=== PATIENT | female | born 1950 | race Asian ===

== ENCOUNTER 2019-09-08 08:48 | Outpatient (CLI) | payer MEDICARE ==
[~2019-09-08] VITALS: Ht 152.4 cm; Wt 43.4 kg
[2019-09-08] MEDS ORDERED: CHLORHEXIDINE 15 ML UDC MM STA (09:30)
[2019-09-08] MEDS ORDERED: LACTATED RINGERS 1,000 ML IV STA (09:30)
[2019-09-08] MEDS ORDERED: GABAPENTIN 300 MG CAPSULE PO STA (09:32)
[2019-09-08] MEDS ORDERED: ACETAMINOPHEN 500 MG TABLET PO STA (09:32)
[2019-09-08] MEDS ORDERED: amlodipine (09:35)
[2019-09-08] MEDS ORDERED: atorvastatin (09:35)
[2019-09-08] MEDS ORDERED: ENALAPRIL MALEATE (09:35)
[2019-09-08] MEDS ORDERED: HYDR25TA6 PO ×2 (09:35→09:50)
[2019-09-08 09:50] VITALS: BP 137/84
[2019-09-08] MEDS ORDERED: ATOR40TA PO (09:50)
[2019-09-08] MEDS ORDERED: ENAL10TA PO (09:50)
[2019-09-08] MEDS ORDERED: ACETAMINOPHEN 500 MG TABLET ONE (09:56)
[2019-09-08] MEDS ORDERED: GABAPENTIN 300 MG CAPSULE ONE (09:56)
[2019-09-08] MEDS ORDERED: CHLORHEXIDINE 15 ML UDC ONE (09:56)
[2019-09-08] MEDS ORDERED: PLEASE ENTER ALLERGIES MC SCH (10:00)
[2019-09-08 10:21] LABS: ALANINE AMINOTRANSFERASE 25 U/L (12-78); ALBUMIN 3.8 g/dL (3.4-5.0); ANION GAP 7 mmol/L (5-15); CALCIUM 9.3 mg/dL (8.5-10.1); CHLORIDE 99 mmol/L (98-107); CREATININE 0.73 mg/dL (0.55-1.02)
[2019-09-08 10:23] LABS: ALKALINE PHOSPHATASE 76 U/L (45-117); BILIRUBIN,TOTAL 0.6 mg/dL (0.2-1.0); TOTAL PROTEIN 7.8 g/dL (6.4-8.2)
[2019-09-08] MEDS ORDERED: LACTATED RINGERS 1,000 ML IV SCH (10:30)
== END 2019-09-08 23:59 | disposition home or self-care (01) ==
LOC: OUT 08:48 → EDSTATUS 11:00 → OUT 11:34
PROVIDERS: ATTEND Orthopaedic Surgery
DX: S82.042A Displaced comminuted fracture of left patella, initial encounter for closed fracture (principal); Z53.8 Procedure and treatment not carried out for other reasons; Z11.59 Encounter for screening for other viral diseases
CPT/HCPCS: 36415; 80053; 93005; U0001; J7120

== ENCOUNTER 2019-09-13 10:42 | Day surgery (SDC) | payer MEDICARE ==
[~2019-09-13] VITALS: Ht 152.4 cm; Wt 43.6 kg
[~2019-09-13 10:42] MED LIST: ATOR40TA PO; ENAL10TA PO; ENALAPRIL MALEATE; HYDR25TA6 PO; amlodipine; atorvastatin
[2019-09-13 11:17] VITALS: BP 145/86
[2019-09-13] MEDS ORDERED: LACTATED RINGERS 1,000 ML IV SCH (11:26)
[2019-09-13] MEDS ORDERED: CHLORHEXIDINE 15 ML UDC MM STA (11:26)
[2019-09-13] MEDS ORDERED: BUPIVACAINE/PF-EPI 0.5% 1:200K ONE (11:42)
[2019-09-13] MEDS ORDERED: NEOSPORIN OINT. PKT 1 PACKET ONE (11:42)
[2019-09-13] MEDS ORDERED: MIDAZOLAM 1 MG/ML, 2ML ONE (12:15)
[2019-09-13] MEDS ORDERED: FENTANYL PF 100 MCG/2ML ONE ×2 (12:16→14:45)
[2019-09-13] MEDS ORDERED: FENTANYL PF 250 MCG/5ML ONE (14:00)
[2019-09-13] MEDS ORDERED: PROPOFOL 10 MG/ML, 20ML ONE (14:22)
[2019-09-13] MEDS ORDERED: CEFAZOLIN 1,000 MG ONE (14:22)
[2019-09-13] MEDS ORDERED: ROCURONIUM 10MG/ML,5ML ONE (14:22)
[2019-09-13] MEDS ORDERED: ONDANSETRON 2MG/ML, 2ML ONE ×2 (14:22→16:27)
[2019-09-13] MEDS ORDERED: NEOSTIGMINE 1 MG/ML, 10ML ONE (14:22)
[2019-09-13] MEDS ORDERED: DEXAMETHASONE 4 MG/ML, 1ML ONE (14:22)
[2019-09-13] MEDS ORDERED: SUCCINYLCHOLINE 20 MG/ML, 10ML ONE (14:22)
[2019-09-13] MEDS ORDERED: GLYCOPYRROLATE 0.2MG/1ML, 5ML ONE (14:22)
[2019-09-13] MEDS ORDERED: OXYcodone 5 MG/5 ML ORAL.SOL UDC ONE (14:45)
[2019-09-13] MEDS ORDERED: ACETAMINOPHEN 650 MG/20.3 ML UDC ONE (14:45)
[2019-09-13] MEDS ORDERED: ALBUTEROL SULFATE 2.5 MG/3 ML NPPB PRN (15:00)
[2019-09-13] MEDS ORDERED: OXYcodone 5 MG/5 ML ORAL.SOL UDC PO PRN (15:00)
[2019-09-13] MEDS ORDERED: DIAZEPAM 5 MG/ML, 2ML IVPush PRN (15:00)
[2019-09-13] MEDS ORDERED: PROMETHAZINE 25 MG/ML, 1ML IV PRN (15:00)
[2019-09-13] MEDS ORDERED: FENTANYL PF 100 MCG/2ML IV PRN (15:00)
[2019-09-13] MEDS ORDERED: MEPERIDINE/PF 25MG/0.5ML IVPush PRN (15:00)
[2019-09-13] MEDS ORDERED: ACETAMINOPHEN 325 MG TABLET PO PRN (15:00)
[2019-09-13] MEDS ORDERED: LABETALOL 5MG/ML, 20ML IV PRN (15:00)
[2019-09-13] MEDS ORDERED: HYDROmorphone 1 MG/ML, 1ML INJ IVPush PRN (15:00)
[2019-09-13] MEDS ORDERED: hydrALAzine 20 MG/ML, 1ML IV PRN (15:00)
[2019-09-13] MEDS ORDERED: ONDANSETRON 2MG/ML, 2ML IVPush PRN (16:30)
== END 2019-09-13 18:15 | disposition home or self-care (01) ==
LOC: OUT 10:42
PROVIDERS: ATTEND Orthopaedic Surgery
DX: S82.042A Displaced comminuted fracture of left patella, initial encounter for closed fracture (principal); Z11.59 Encounter for screening for other viral diseases; I10 Essential (primary) hypertension; E78.5 Hyperlipidemia, unspecified; Z79.82 Long term (current) use of aspirin; Z79.899 Other long term (current) drug therapy; W01.0XXA Fall on same level from slipping, tripping and stumbling without subsequent striking against object, initial encounter; Y93.01 Activity, walking, marching and hiking; Y92.89 Other specified places as the place of occurrence of the external cause; Y99.8 Other external cause status
CPT/HCPCS: 27524; 64447; 73560; J0690; J1100; J2250; J2405; J2704; J3010; J7120; 76000; J2710; J0330